=== PATIENT | female | born 1950 | race Caucasian/White ===

== ENCOUNTER 2021-05-14 17:17 | Inpatient (IN) | payer MEDICARE, OTHER ==
[~2021-05-14] VITALS: Ht 157.5 cm; Wt 157.5 kg
[2021-05-14] MEDS ORDERED: ICOSAPENT ETHYL1 GM PO (18:46)
[2021-05-14] MEDS ORDERED: CLOPIDOGREL75 MG PO (18:47)
[2021-05-14] MEDS ORDERED: BUMETANIDE2 MG PO (18:47)
[2021-05-14] MEDS ORDERED: ISOSORBIDE MONO60 MG PO (18:48)
[2021-05-14] MEDS ORDERED: COREG 12.5MG12.5 MG PO (18:48)
[2021-05-14] MEDS ORDERED: RANOLAZINE ER500 MG PO (18:48)
[2021-05-14] MEDS ORDERED: LEVOTHYROXINE25 MCG PO (18:49)
[2021-05-14] MEDS ORDERED: ATORVASTATIN CA80 MG PO (18:49)
[2021-05-14] MEDS ORDERED: PROTONIX 40 MG40 M1 PO (18:54)
[2021-05-14] MEDS ORDERED: ALDACTONE 25MG25 MG PO (18:54)
[2021-05-14] MEDS ORDERED: SENNA PLUS TAB1 EACH PO (18:54)
[2021-05-14] MEDS ORDERED: ASPIRIN81 MG PO (18:55)
[2021-05-14] MEDS ORDERED: NOVOLOG 10100 UNITS/ SC (18:56)
[2021-05-14] MEDS ORDERED: LANTUS100 UNIT/1 SC (18:56)
[2021-05-15 03:22] LABS: HEMOGLOBIN 8.2 gm/dl (12.3-15.3); RED BLOOD COUNT 3.27 M/UL (4.00-5.10); WHITE BLOOD COUNT 7.4 K/UL (4.5-11.0)
[2021-05-15 03:54] LABS: BUN/CREATININE RATIO 28 (0-10)
[2021-05-16 03:07] LABS: RED BLOOD COUNT 3.61 M/UL (4.00-5.10); WHITE BLOOD COUNT 8.9 K/UL (4.5-11.0)
[2021-05-17 03:14] LABS: HEMOGLOBIN 8.4 gm/dl (12.3-15.3); RED BLOOD COUNT 3.39 M/UL (4.00-5.10); WHITE BLOOD COUNT 9.4 K/UL (4.5-11.0)
[2021-05-17 03:44] LABS: BUN/CREATININE RATIO 29 (0-10)
[2021-05-18 05:49] LABS: HEMOGLOBIN 8.7 gm/dl (12.3-15.3); RED BLOOD COUNT 3.47 M/UL (4.00-5.10); WHITE BLOOD COUNT 9.6 K/UL (4.5-11.0)
[2021-05-18 06:05] LABS: BUN/CREATININE RATIO 28 (0-10)
[2021-05-19 05:53] LABS: HEMOGLOBIN 8.7 gm/dl (12.3-15.3); RED BLOOD COUNT 3.46 M/UL (4.00-5.10); WHITE BLOOD COUNT 8.7 K/UL (4.5-11.0)
[2021-05-19 06:17] LABS: BUN/CREATININE RATIO 26 (0-10)
[2021-05-19] MEDS ORDERED: BUMETANIDE2 MG PO (11:04)
[2021-05-19] MEDS ORDERED: CEFUROXIME500 MG PO (11:04)
[2021-05-19] MEDS ORDERED: FERROUS GLUCON324 M1 PO (11:06)
[2021-05-19] MEDS ORDERED: PLAVIX 75 MG TA75 MG PO (11:10)
--- NOTE | 2021-05-19 12:42 | NUR ---
1243: FAXED PCS TO [facility] FOR TRANSPORT HOME. AWAITING TRANSPORT ARRIVAL TO HOSPITAL.
--- NOTE | 2021-05-19 13:09 | NUR ---
1305: REPORT CALLED TO [facility], REPORT GIVEN TO AMINA ROSAS.
== END 2021-05-19 14:23 | disposition home health service (06) | DRG 291 ==
LOC: MED SURG 4 18:04 → PROG CARE 18:04 → MED SURG 4 05-17 17:06
PROVIDERS: ADMIT Internal Medicine Infectious Disease
DX: I11.0 Hypertensive heart disease with heart failure (principal); J96.21 Acute and chronic respiratory failure with hypoxia; J96.22 Acute and chronic respiratory failure with hypercapnia; N39.0 Urinary tract infection, site not specified; I50.33 Acute on chronic diastolic (congestive) heart failure; D50.9 Iron deficiency anemia, unspecified; I48.0 Paroxysmal atrial fibrillation; E11.9 Type 2 diabetes mellitus without complications; J44.9 Chronic obstructive pulmonary disease, unspecified; E66.01 Morbid (severe) obesity due to excess calories; B96.4 Proteus (mirabilis) (morganii) as the cause of diseases classified elsewhere; Z20.822 Contact with and (suspected) exposure to COVID-19; I25.10 Atherosclerotic heart disease of native coronary artery without angina pectoris; R31.0 Gross hematuria; E03.9 Hypothyroidism, unspecified; K21.9 Gastro-esophageal reflux disease without esophagitis; E78.5 Hyperlipidemia, unspecified; Z79.4 Long term (current) use of insulin; Z79.01 Long term (current) use of anticoagulants; Z98.51 Tubal ligation status; Z82.5 Family history of asthma and other chronic lower respiratory diseases; I25.2 Old myocardial infarction
CPT/HCPCS: ECHO; 36415; 36600; 71045; 80048; 80053; 81001; 82607; 82728; 82746; 82803; 82962; 83036; 83540; 83550; 83735; 83880; 84443; 85025; 87077; 87086; 87186; 93005; 93306; 94640; 94660; 94664; 94760; 97116-GP-CQ; 97163; 97530-GP-CQ; J0696; J1650; J1756; J2405